=== PATIENT | male | born 1995 | race African-American/Black ===

== ENCOUNTER 2017-07-06 12:16 | Emergency (ER) | payer SELFPAY ==
[2017-07-06] MEDS: DIPHTH,PERTUSS(ACELL),TET TOX 0.5 ML DISP.SYRIN. VAX IM (14:10)
== END 2017-07-06 14:20 | disposition home or self-care (01) ==
LOC: ER 12:16
DX: S00.81XA Abrasion of other part of head, initial encounter (principal); S09.93XA Unspecified injury of face, initial encounter; V43.52XA Car driver injured in collision with other type car in traffic accident, initial encounter; Y92.410 Unspecified street and highway as the place of occurrence of the external cause; Y93.I9 Activity, other involving external motion; Y99.8 Other external cause status
CPT/HCPCS: 70450; 70486; 90471; 90715; 99284-25

== ENCOUNTER 2017-09-03 07:30 | Emergency (ER) | payer SELFPAY | END 2017-09-03 08:42 | disposition home or self-care (01) | LOC: ER 07:30 | DX: S60.022A Contusion of left index finger without damage to nail, initial encounter (principal); W23.1XXA Caught, crushed, jammed, or pinched between stationary objects, initial encounter; Y93.89 Activity, other specified; Y92.89 Other specified places as the place of occurrence of the external cause; Y99.8 Other external cause status | CPT/HCPCS: 73130; 99284 ==